=== PATIENT | male | born 1985 | race Caucasian/White ===

== ENCOUNTER 2017-10-13 19:57 | Emergency (ER) | END 2017-10-13 23:12 | disposition home or self-care (01) ==

== ENCOUNTER 2018-02-21 21:36 | Emergency (ER) | END 2018-02-22 00:49 | disposition home or self-care (01) ==

== ENCOUNTER 2018-07-31 01:18 | Inpatient (IN) | payer OTHER ==
[2018-07-31] VITALS (28 sets, daily range): BP systolic 125–148; BP diastolic 66–84; PULSE 62–84; RESP 14–21; Ht 175.3 cm; Wt 122.0 kg
[~2018-07-31] VITALS: Ht 175.3 cm; Wt 122.0 kg
[~2018-07-31 01:18] MED LIST: CEPH-443 PO; IBUP800T48 PO; MECL-77 PO; ONDA4TAB14 PO
[2018-07-31] MEDS ORDERED: HYDROCODONE/APAP (5/325) TAB PO ONE (02:30)
[2018-07-31] MEDS ORDERED: IBUPROFEN 600 MG TAB PO ONE (02:30)
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
[2018-07-31] MEDS ORDERED: D5W + KCL 20 MEQ 1,000 ML IV ONE (06:55)
[2018-07-31] MEDS ORDERED: HYDROmorphONE 2 MG/ML SYG IV STA (06:55)
[2018-07-31] MEDS ORDERED: CEFAZOLIN 1 GM/50 ML (PMX) 50 ML IVPB SCH ×2 (07:00→14:00)
[2018-07-31] MEDS ORDERED: DEXTROSE 5%-0.45% NACL 1,000 ML IV SCH (07:27)
[2018-07-31] MEDS ORDERED: ONDANSETRON 4 MG INJ IV PRN ×2 (07:30→08:00)
[2018-07-31] MEDS ORDERED: NACL 0.9% 3 ML SYG IV SCH ×2 (07:30→11:30)
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
[2018-07-31] MEDS ORDERED: ACETAMINOPHEN 325 MG TAB PO PRN (08:00)
--- NOTE | 2018-07-31 09:50 | PREAC ---
Date/Time of Note Date/Time of Note DATE: 07/31/18 TIME: 09:48 Anesthesia Eval and Record Evaluation Time Pre-Procedure Interview DATE: 07/31/18 TIME: 09:48 Age 32 Sex male NPO: 8 hrs Preoperative diagnosis hip fracture Planned procedure closed reduction Past Medical History Past Medical History: Includes GI: Obesity Surgery & Anesthesia Issues No known issue Meds Anticoagulation: No Beta Miranda within 24 hr: No Reason Beta Miranda not given: Pt. not on B-Miranda Active Scripts Ondansetron (Ondansetron Odt) 4 Mg Tab.rapdis, 4 MG PO Q6H PRN for NAUSEA AND/OR VOMITING, #20 TAB Prov:KRISTI DAVIS PA-C 02/21/18 Meclizine Hcl* (Meclizine Hcl*) 25 Mg Tablet, 25 MG PO Q8H PRN for DIZZINESS, #30 TAB Prov:KRISTI DAVIS PA-C 02/21/18 Ibuprofen* (Motrin*) 800 Mg Tab, 800 MG PO Q6, #30 TAB Prov:DANIA RAMIREZ PA-C 10/13/17 Cephalexin* (Keflex*) 500 Mg Capsule, 500 MG PO QID for 5 Days, CAP Prov:DANIA RAMIREZ PA-C 10/13/17 Current Medications Potassium Chloride/Dextrose 1,000 ml @ 125 mls/hr Q8H ONCE IV Last administered on 07/31/18at 07:26; Admin Dose 125 MLS/HR; Start 07/31/18 at 06:55; Stop 07/31/18 at 14:54 Dextrose/Sodium Chloride 1,000 ml @ 125 mls/hr Q8H IV ; Start 07/31/18 at 07:27 IV Flush (NS 3 ml) 3 ml PER PROTOCOL IV ; Start 07/31/18 at 07:30 Ondansetron HCl (Zofran Inj) 4 mg Q6H PRN IV NAUSEA/VOMITING; Start 07/31/18 at 07:30 Oxycodone/ Acetaminophen (Percocet (5/ 325)) 1 tab Q6H PRN PO .PAINS 4-6; S tart 07/31/18 at 07:30 Morphine Sulfate (morphine) 2 mg Q4H PRN IV .PAIN 7-10; Start 07/31/18 at 07:30 Pantoprazole (Protonix Iv) 40 mg DAILY@06 IV ; Start 08/01/18 at 06:00 Cefazolin Sodium 50 ml @ 100 mls/hr Q8 IVPB ; Start 07/31/18 at 14:00 Ondansetron HCl (Zofran Inj) 4 mg BRIDGE ORDER PRN IV NAUSEA/VOMITING; Start 07/31/18 at 08:00; Stop 08/01/18 at 07:59 Acetaminophen (Tylenol Tab) 650 mg ER BRIDGE PRN PO .MILD PAIN 1-3 OR TEMP; Start 07/31/18 at 08:00; Stop 08/01/18 at 07:59 Meds reviewed: Yes Allergies Coded Allergies: No Known Allergy (Unverified , 10/13/17) Allergies Reviewed: Yes Labs/Studies Labs Reviewed: Reviewed by anesthesiologist Result Diagram: 07/31/18 0610 07/31/18 0610 Laboratory Tests 07/31/18 06:10 test: N/A Pre-procedure Exam Last vitals Vital Signs Date Temp Pulse Resp B/P (MAP) Pulse Ox O2 O2 Flow FiO2 Time Delivery Rate 07/31/18 134/86 98 Nasal 09:03 (102) Cannula 07/31/18 97.9 62 08:11 Airway: Adequate mouth opening, Adequate thyromental dist Mallampati: Mallampati IV Teeth: Normal Lung: Normal Heart: Normal ASA Physical Status ASA physical status: 2 Emergency: None Pre-operative Attestations Prior to commencing anesthesia and surgery, the patient was re-evaluated, there was verification of: *The patient's identity *The results of appropriate recent lab work and preoperative vital signs *The above evaluation not changing prior to induction *Anesthetic plan, risk benefits, alternative and complications discussed with patient/family; questions answered; patient/family understands, accepts and wishes to proceed. JAVIER JOSHUA DO July 31, 2018 09:50
[2018-07-31] MEDS ORDERED: HYDROmorphONE 1 MG/5 ML IV SYRINGE IV PRN ×2 (10:00)
[2018-07-31] MEDS ORDERED: LIDOCAINE 2% (SDV) 5 ML INJ ONE (10:09)
[2018-07-31] MEDS ORDERED: ROCURONIUM 50 MG INJ ONE (10:09)
[2018-07-31] MEDS ORDERED: PROPOFOL 20 ML ONE (10:09)
[2018-07-31] MEDS ORDERED: SUCCINYLCHOLINE CHLORIDE 100 MG/5 ML SYG IV ONE (10:09)
[2018-07-31] MEDS ORDERED: FENTAnyl 50 MCG/ML VIAL ONE ×2 (10:11→10:17)
[2018-07-31] MEDS ORDERED: MIDAZOLAM 1 MG/ML 2 ML INJ ONE (10:11)
[2018-07-31] MEDS ORDERED: ONDANSETRON 4 MG INJ ONE (10:17)
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
[2018-07-31] MEDS ORDERED: SUGAMMADEX SODIUM 200 MG/2 ML VIAL IV ONE (10:57)
--- NOTE | 2018-07-31 11:12 | PAC ---
Date/Time of Note Date/Time of Note DATE: 07/31/18 TIME: 11:12 Post-Anesthesia Notes Post-Anesthesia Note Last documented vital signs Vital Signs Date Temp Pulse Resp B/P (MAP) Pulse Ox O2 O2 Flow FiO2 Time Delivery Rate 07/31/18 134/86 98 Nasal 09:03 (102) Cannula 07/31/18 97.9 62 08:11 Activity: WNL Respiratory function: WNL Cardiovascular function: WNL Mental status: Baseline Pain reasonably controlled: Yes Hydration appropriate: Yes Nausea/Vomiting absent: Yes JAVIER JOSHUA DO July 31, 2018 11:12
--- NOTE | 2018-07-31 11:26 | SIPON ---
Date/Time of Note Date/Time of Note DATE: 07/31/18 TIME: 11:20 Operative Report Preoperative Diagnosis tibial plateau fracture of left knee Postoperative Diagnosis same Operation/Procedure Performed closed manipulative reduction of tibial plateou fracture of left knn and immobilization in a long leg brace Surgeon see signature line respiratory care assistant none Anesthesia: general Estimated blood loss: none Transfusion Required none Specimen none Grafts/Implants none Complications none ZI RICE MD July 31, 2018 11:26
[2018-07-31] MEDS ORDERED: CEFAZOLIN 2 GM/50 ML (PMX) 50 ML IVPB SCH (12:00)
--- NOTE | 2018-07-31 12:56 | OPR ---
DATE OF OPERATION: 07/31/2018 PREOPERATIVE DIAGNOSIS: Severely comminuted medial and lateral plateau fracture of the left knee wit h minimal depression. POSTOPERATIVE DIAGNOSIS: Severely comminuted medial and lateral plateau fracture of the left knee wi th minimal depression. OPERATION PERFORMED: Closed manipulative reduction of the tibial plateau fracture of the left knee a nd immobilization in a long leg brace with a dial lock at the knee joint. ANESTHESIA: General anesthesia. SURGEON: Margaret Rice MD PROCEDURE AND FINDINGS: Under general anesthesia, the patient was placed in supine position on a fra cture table. Utilizing fracture table and under fluoroscopic monitoring, manipulative reduction was carried out in the following manner. First, the open wound over the anterior aspect of the left knee was shaved and cleared and then sterile occlusive dressings were applied utilizing special dressings . Manipulative reduction of the tibial plateau fracture of the left knee was then carried out in the following manner. Utilizing fracture table and under fluoroscopic monitoring distal axial traction was applied to the left lower extremity. At the time of traction, the real time realignment of the f racture was observed through the fluoroscope. Additional lateral displacement of the lateral tibial plateau part of the fracture was reduced by applying coaptation pressure. After obtaining overall sa tisfactory alignment in multiple projections, the reduction was maintained in a long leg brace with a dial lock at the knee joint. At the end of the procedure, the overall alignment of the fracture was entirely satisfactory. The patient tolerated the entire procedure very well and was sent to the recovery room in excellent c ondition. Dictated By: MARGARET RICE MD IK/NTS Conf#: [id number] DID#: [id number] CC: HOLDEN SIERRA MD;*EndCC*
[2018-07-31] MEDS: SOD CHLORIDE 0.9% 1,000 ML IV SCH ×2 (13:56→23:32)
[2018-07-31] MEDS: morphine 2 MG INJ IV PRN (13:56)
[2018-07-31] MEDS: oxyCODONE 5 MG TAB PO PRN ×2 (16:52→22:14)
[2018-07-31] MEDS: CEFAZOLIN 2 GM/50 ML (PMX) 50 ML IVPB SCH ×2 (16:52→22:14)
[2018-08-01 01:25] VITALS: BP 121/66; PULSE 65; RESP 18
[2018-08-01] MEDS: morphine 2 MG INJ IV PRN (01:32)
[2018-08-01] MEDS: oxyCODONE 5 MG TAB PO PRN ×2 (05:55→13:22)
[2018-08-01] MEDS: PANTOPRAZOLE (EC) 40 MG TAB PO SCH (05:56)
[2018-08-01] MEDS: CEFAZOLIN 2 GM/50 ML (PMX) 50 ML IVPB SCH (05:56)
[2018-08-01] MEDS ORDERED: PANTOPRAZOLE 40 MG INJ IV SCH (06:00)
[2018-08-01 07:33] VITALS: BP 133/78; PULSE 64; RESP 18
[2018-08-01] MEDS: OXYCODONE/ACETAMINOPHEN (5/325) TAB PO PRN ×2 (08:37→18:07)
[2018-08-01] MEDS: ENOXAPARIN 40 MG/0.4 ML SYG SC SCH (08:39)
[2018-08-01] MEDS: SOD CHLORIDE 0.9% 1,000 ML IV SCH (12:02)
[2018-08-01 13:48] VITALS: BP 137/81; PULSE 74; RESP 18
--- NOTE | 2018-08-01 15:08 | PN ---
Date/Time of Note Date/Time of Note DATE: 08/01/18 TIME: 15:04 Assessment/Plan VTE Prophylaxis Risk score (from Ns)>0 risk: 1 SCD applied (from Ns): No SCD contraindicated: other Pharmacological prophylaxis: LMWH Lines/Catheters IV Catheter Type (from Nrsg): Peripheral IV Urinary Cath still in place: No Assessment/Plan Assessment/Plan 1. Left tibial plateau fracture with left knee hemarthrosis s/p realignment - Ortho consultation appreciated and recommending absolutely nonweightbearing. Once able to get around and pain controlled, can be d/c with outpatient follow up - continue pain control - PT on board 2. Disposition - Continue ambulating with PT and once able to get around with pain well controlled, will d/c home. Most likely in the next 24-48 hours Result Diagram: 08/01/18 0427 08/01/18 0427 Results 24hrs Laboratory Tests Test 08/01/18 04:27 White Blood Count 9.9 # Red Blood Count 4.07 L Hemoglobin 12.2 L Hematocrit 37.2 L Mean Corpuscular Volume 91.4 Mean Corpuscular Hemoglobin 30.0 Mean Corpuscular Hemoglobin Concent 32.8 Red Cell Distribution Width 12.7 Platelet Count 170 # Mean Platelet Volume 12.4 H Immature Granulocytes % 0.300 Neutrophils % 51.9 Lymphocytes % 34.9 Monocytes % 10.9 Eosinophils % 1.7 Basophils % 0.3 Nucleated Red Blood Cells % 0.0 Immature Granulocytes # 0.030 Neutrophils # 5.1 Lymphocytes # 3.4 H Monocytes # 1.1 H Eosinophils # 0.2 Basophils # 0.0 Nucleated Red Blood Cells # 0.0 Sodium Level 141 Potassium Level 3.7 Chloride Level 106 Carbon Dioxide Level 27 Anion Gap 8 Blood Urea Nitrogen 7 Creatinine 0.76 Est Glomerular Filtrat Rate mL/min > 60 Glucose Level 104 Hemoglobin A1c 5.5 Calcium Level 8.1 L Magnesium Level 2.1 Total Bilirubin 0.8 Direct Bilirubin 0.00 Indirect Bilirubin 0.8 Aspartate Amino Transf (AST/SGOT) 29 Alanine Aminotransferase (ALT/SGPT) 32 Alkaline Phosphatase 62 Total Protein 6.9 Albumin 3.5 Globulin 3.40 H Albumin/Globulin Ratio 1.02 Subjective 24 Hr Interval Summary Free Text/Dictation Patient states he was having difficulty ambulating with walker due to pivoting causing pain. Also complaining of mild numbness left foot. Exam/Review of Systems Exam Vitals Vital Signs Date Temp Pulse Resp B/P (MAP) Pulse Ox O2 O2 Flow FiO2 Time Delivery Rate 08/01/18 98.2 74 18 137/81 95 13:48 (99) 08/01/18 Room Air 01:25 Intake and Output 07/31/18 07/31/18 08/01/18 1515:00 23:00 07:00 IntakeIntake Total 1100 ml 580 ml 810 ml OutputOutput Total 0 ml 1150 ml BalanceBalance 1100 ml 580 ml -340 ml Exam General: Patient is laying in bed and answers questions appropriately Neck: Supple Respiratory: Clear to auscultation bilaterally. no wheezing or rhonchi Cardiovascular: regular rate and rhythm, no obvious murmurs Gastrointestinal: soft, non-tender to palpation, nondistended, bowel sounds heard. Ext: left knee dressing in place as well as brace. diminished sensation left foot, pulses intact Skin: Left knee abrasion, bandage, CDI Results Results 24hrs Laboratory Tests Test 08/01/18 04:27 White Blood Count 9.9 # Red Blood Count 4.07 L Hemoglobin 12.2 L Hematocrit 37.2 L Mean Corpuscular Volume 91.4 Mean Corpuscular Hemoglobin 30.0 Mean Corpuscular Hemoglobin Concent 32.8 Red Cell Distribution Width 12.7 Platelet Count 170 # Mean Platelet Volume 12.4 H Immature Granulocytes % 0.300 Neutrophils % 51.9 Lymphocytes % 34.9 Monocytes % 10.9 Eosinophils % 1.7 Basophils % 0.3 Nucleated Red Blood Cells % 0.0 Immature Granulocytes # 0.030 Neutrophils # 5.1 Lymphocytes # 3.4 H Monocytes # 1.1 H Eosinophils # 0.2 Basophils # 0.0 Nucleated Red Blood Cells # 0.0 Sodium Level 141 Potassium Level 3.7 Chloride Level 106 Carbon Dioxide Level 27 Anion Gap 8 Blood Urea Nitrogen 7 Creatinine 0.76 Est Glomerular Filtrat Rate mL/min > 60 Glucose Level 104 Hemoglobin A1c 5.5 Calcium Level 8.1 L Magnesium Level 2.1 Total Bilirubin 0.8 Direct Bilirubin 0.00 Indirect Bilirubin 0.8 Aspartate Amino Transf (AST/SGOT) 29 Alanine Aminotransferase (ALT/SGPT) 32 Alkaline Phosphatase 62 Total Protein 6.9 Albumin 3.5 Globulin 3.40 H Albumin/Globulin Ratio 1.02 Medications Medication Current Medications IV Flush (NS 3 ml) 3 ml PER PROTOCOL IV ; Start 07/31/18 at 07:30 Ondansetron HCl (Zofran Inj) 4 mg Q6H PRN IV NAUSEA/VOMITING; Start 07/31/18 at 07:30 Oxycodone/ Acetaminophen (Percocet (5/ 325)) 1 tab Q6H PRN PO .PAINS 4-6 Last administered on 08/01/18 08:37; Admin Dose 1 TAB; Start 07/31/18 at 07:30 Morphine Sulfate (morphine) 2 mg Q4H PRN IV .PAIN 7-10 Last administered on 08/01/18 01:32; Admin Dose 2 MG; Start 07/31/18 at 07:30 Sodium Chloride 1,000 ml @ 80 mls/hr [id number] IV Last administered on 07/31/18 13:56; Admin Dose 80 MLS/HR; Start 07/31/18 at 11:02 IV Flush (NS 3 ml) 3 ml PER PROTOCOL IV ; Start 07/31/18 at 11:30 Oxycodone HCl (Roxicodone) 10 mg Q4H PRN PO .PAIN Last administered on 08/01/18 13:22; Admin Dose 10 MG; Start 07/31/18 at 11:30 Enoxaparin Sodium (Lovenox) 40 mg DAILY SC Last administered on 08/01/18 08:39; Admin Dose 40 MG; Start 08/01/18 at 09:00 Pantoprazole (Protonix Tab) 40 mg DAILY@06 PO Last administered on 08/01/18 05:56; Admin Dose 40 MG; Start 08/01/18 at 06:00 BRIAN SCHWARZ MD August 01, 2018 15:08
[2018-08-01 20:19] VITALS: BP 130/77; PULSE 80; RESP 18
[2018-08-02] MEDS: OXYCODONE/ACETAMINOPHEN (5/325) TAB PO PRN ×3 (01:02→19:13)
[2018-08-02 01:59] VITALS: BP 130/72; PULSE 88; RESP 18
[2018-08-02] MEDS: oxyCODONE 5 MG TAB PO PRN ×2 (05:49→12:38)
[2018-08-02] MEDS: PANTOPRAZOLE (EC) 40 MG TAB PO SCH (05:49)
[2018-08-02 07:58] VITALS: BP 128/72; PULSE 73; RESP 18
[2018-08-02] MEDS: ENOXAPARIN 40 MG/0.4 ML SYG SC SCH (08:23)
--- NOTE | 2018-08-02 10:57 | PN ---
Date/Time of Note Date/Time of Note DATE: 08/02/18 TIME: 10:57 Assessment/Plan VTE Prophylaxis Risk score (from Nsg)>0 risk: 2 SCD applied (from Ns): No SCD contraindicated: other Pharmacological prophylaxis: LMWH Lines/Catheters IV Catheter Type (from Nrsg): Saline Lock Urinary Cath still in place: No Assessment/Plan Assessment/Plan 1. Left tibial plateau fracture with left knee hemarthrosis s/p realignment - Ortho consultation appreciated and recommending absolutely nonweightbearing. Once able to get around and pain controlled, can be d/c with outpatient follow up - Crutches and 3:1 commode ordered - continue pain control - PT on board 2. Disposition - Continue working with PT. Patient requesting to work with PT upstairs given concern about stairs at home. Result Diagram: 08/01/1842608/01/18426 Subjective 24 Hr Interval Summary Free Text/Dictation Patient still concerned about numbness in left foot and discussed most likely from brace. Ambulating better with PT but concerned about walking up stairs at home. No acute overnight events. Exam/Review of Systems Exam Vitals Vital Signs Date Temp Pulse Resp B/P (MAP) Pulse Ox O2 O2 Flow FiO2 Time Delivery Rate 08/02/18 97.8 73 18 128/72 97 Room Air 07:58 (90) Intake and Output 08/01/18 08/01/18 08/02/18 1515:00 23:00 07:00 IntakeIntake Total 720 ml OutputOutput Total 150 ml BalanceBalance 570 ml Exam General: Patient is laying in bed and answers questions appropriately Neck: Supple Respiratory: Clear to auscultation bilaterally. no wheezing or rhonchi Cardiovascular: regular rate and rhythm, no obvious murmurs Gastrointestinal: soft, non-tender to palpation, nondistended, bowel sounds heard. Ext: left knee dressing in place as well as brace. diminished sensation left foot, pulses intact. mild swelling. right foot- within normal limits Skin: Left knee abrasion, bandage, CDI Medications Medication Current Medications IV Flush (NS 3 ml) 3 ml PER PROTOCOL IV ; Start 07/31/18 at 07:30 Ondansetron HCl (Zofran Inj) 4 mg Q6H PRN IV NAUSEA/VOMITING; Start 07/31/18 at 07:30 Oxycodone/ Acetaminophen (Percocet (5/ 325)) 1 tab Q6H PRN PO .PAINS 4-6 Last administered on 08/02/18 08:21; Admin Dose 1 TAB; Start 07/31/18 at 07:30 Morphine Sulfate (morphine) 2 mg Q4H PRN IV .PAIN 7-10 Last administered on 08/01/18 01:32; Admin Dose 2 MG; Start 07/31/18 at 07:30 IV Flush (NS 3 ml) 3 ml PER PROTOCOL IV ; Start 07/31/18 at 11:30 Oxycodone HCl (Roxicodone) 10 mg Q4H PRN PO .PAIN Last administered on 08/02/18 05:49; Admin Dose 10 MG; Start 07/31/18 at 11:30 Enoxaparin Sodium (Lovenox) 40 mg DAILY SC Last administered on 08/02/18at 0 8:23; Admin Dose 40 MG; Start 08/01/18 at 09:00 Pantoprazole (Protonix Tab) 40 mg DAILY@06 PO Last administered on 08/02/18 05:49; Admin Dose 40 MG; Start 08/01/18 at 06:00 BRIAN SCHWARZ MD August 02, 2018 10:57
[2018-08-02 14:31] VITALS: BP 123/67; PULSE 84; RESP 18
[2018-08-02 19:53] VITALS: BP 140/78; PULSE 94; RESP 18
[2018-08-03] MEDS: OXYCODONE/ACETAMINOPHEN (5/325) TAB PO PRN ×2 (00:13→06:00)
[2018-08-03 02:04] VITALS: BP 129/77; PULSE 78; RESP 18
[2018-08-03] MEDS: PANTOPRAZOLE (EC) 40 MG TAB PO SCH (06:00)
[2018-08-03 08:30] VITALS: BP 123/77; PULSE 94; RESP 18
[2018-08-03] MEDS: ENOXAPARIN 40 MG/0.4 ML SYG SC SCH (09:16)
--- NOTE | 2018-08-03 11:15 | PN ---
Date/Time of Note Date/Time of Note DATE: 08/03/18 TIME: 11:14 Assessment/Plan VTE Prophylaxis Risk score (from Nsg)>0 risk: 6 SCD applied (from Nsg): Yes Pharmacological prophylaxis: LMWH Lines/Catheters IV Catheter Type (from Nrsg): Peripheral IV Urinary Cath still in place: No Assessment/Plan Assessment/Plan 1. Left tibial plateau fracture with left knee hemarthrosis s/p realignment - Working well with PT and stable for discharge - Ortho consultation appreciated and recommending absolutely nonweightbearing. Once able to get around and pain controlled, can be d/c with outpatient follow up - pain control - PT on board 2. Disposition - Medically stable for discharge home Result Diagram: 08/01/1842608/01/18426 Subjective 24 Hr Interval Summary Free Text/Dictation Patient still with numbness of left foot but denies any worsening. working well with PT. No acute overnight events. Exam/Review of Systems Exam Vitals Vital Signs Date Temp Pulse Resp B/P (MAP) Pulse Ox O2 O2 Flow FiO2 Time Delivery Rate 08/03/18 98.1 94 18 123/77 98 Room Air 08:30 (92) Intake and Output 08/02/18 08/02/18 08/03/18 1515:00 23:00 07:00 IntakeIntake Total 760 ml 240 ml OutputOutput Total 200 ml BalanceBalance 560 ml 240 ml Exam General: Patient is laying in bed and answers questions appropriately Respiratory: Clear to auscultation bilaterally. no wheezing or rhonchi Cardiovascular: regular rate and rhythm, no obvious murmurs Gastrointestinal: soft, non-tender to palpation, nondistended, bowel sounds heard. Ext: left knee dressing in place as well as brace. diminished sensation left foot, pulses intact. mild swelling Skin: Left knee abrasion, bandage, CDI Medications Medication Current Medications IV Flush (NS 3 ml) 3 ml PER PROTOCOL IV ; Start 07/31/18 at 07:30 Ondansetron HCl (Zofran Inj) 4 mg Q6H PRN IV NAUSEA/VOMITING; Start 07/31/18 at 07:30 Oxycodone/ Acetaminophen (Percocet (5/ 325)) 1 tab Q6H PRN PO .PAINS 4-6 Last administered on 08/03/18at 06:00; Admin Dose 1 TAB; Start 07/31/18 at 07:30 Morphine Sulfate (morphine) 2 mg Q4H PRN IV .PAIN 7-10 Last administered on 08/01/18at 01:32; Admin Dose 2 MG; Start 07/31/18 at 07:30 IV Flush (NS 3 ml) 3 ml PER PROTOCOL IV ; Start 07/31/18 at 11:30 Oxycodone HCl (Roxicodone) 10 mg Q4H PRN PO .PAIN Last administered on 08/02/18at 12:38; Admin Dose 10 MG; Start 07/31/18 at 11:30 Enoxaparin Sodium (Lovenox) 40 mg DAILY SC Last administered on 08/03/18 09:16; Admin Dose 40 MG; Start 08/01/18 at 09:00 Pantoprazole (Protonix Tab) 40 mg DAILY@06 PO Last administered on 08/03/18 06:00; Admin Dose 40 MG; Start 08/01/18 at 06:00 BRIAN SCHWARZ MD August 03, 2018 11:15
[2018-08-03] MEDS ORDERED: OXYC-438 PO (11:22)
[2018-08-03] MEDS ORDERED: DOCU-144 PO (11:24)
--- NOTE | 2018-08-03 11:24 | PDOCDIS ---
Discharge Instructions DIAGNOSIS Discharge Diagnosis 1. Left tibial plateau fracture with left knee hemarthrosis s/p realignment CONDITION [id number] Patient Condition: [id number] Stable HOME CARE INSTRUCTIONS: [id number] Diet Instructions: [id number] Regular ACTIVITY: [id number] Activity Restrictions: [id number] Slowly Increase Activity Rest between Activity Avoid heavy lifting Do not Drive Do not operate Machinery Do not operate Power Tool Avoid Heavy Housework No Weight Bearing [id number] Activity Restrictions [id number] NO weight bearing to left Comment: leg; wear long leg brace at all times FOLLOW UP/APPOINTMENTS Follow-up Plan 1. Follow up with your primary care physician in 1-2 weeks. If you do not have one, you can make an appointment with Dr. Koko Orozco 2. Follow up with Dr. Arechiga in 1-2 weeks. Call his office to make an appointment 3. You are to put NO weight on your left leg and wear the long brace at all times. If you are experiencing any concerning symptoms, please call Dr. Rice office, or go to your nearest emergency department 4. Take pain medications as needed and make sure to increase fiber intake and hydration. Take colace while taking pain medications to prevent constipation. REFERRALS Other Referrals Yogi Arechiga MD Specialty Orthopedic Surgery Comments Office Address [address] [place] [id number] Office BRIAN SCHWARZ MD August 03, 2018 11:24
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
== END 2018-08-03 16:10 | disposition home or self-care (01) | DRG 563 ==
LOC: FTE 01:18 → SUATTDRO 07:12 → SDS 07:41 → MS1 07:42
PROVIDERS: ADMIT Internal Medicine; ATTEND Internal Medicine
PROC: 0QSHXZZ Reposition Left Tibia, External Approach (ICD-10-PCS; principal; 2018-07-31 10:00)
DX: S82.142A Displaced bicondylar fracture of left tibia, initial encounter for closed fracture (principal); S82.452A Displaced comminuted fracture of shaft of left fibula, initial encounter for closed fracture; V29.9XXA Motorcycle rider (driver) (passenger) injured in unspecified traffic accident, initial encounter
CPT/HCPCS: 71045; 73560; 73562; 73700; 80048; 80053; 83036; 83735; 85025; 85610; 85730; 93005; 96374; 96375; 97116; 97161; 97530; C9113; J0690; J1170; J1650; J2250; J2270; J2405; J3010; J3480; J7030; J7042; L1832